=== PATIENT | female | born 2000 | race Two or more races ===

== ENCOUNTER 2024-02-18 14:59 | Emergency (ER) | payer OTHER, SELFPAY ==
[2024-02-18 14:59] VITALS: BMI 21.9
[2024-02-18 15:09] VITALS: BP 106/78; PULSE 96; RESP 16; TEMP 37.1; O2SAT 97
--- NOTE | 2024-02-18 15:11 | XR_ITS ---
Examination: Foot, left, 3 views Technique: AP, oblique, lateral views foot, 3 views Date and time of exam: February 18, 2024 1523 hours INDICATIONS: Foot today, foot pain fifth digit pain. FINDINGS: Adequate bone density Small old appearing bone density perhaps a sesamoid which is plantar to the distal aspect proximal phalanx fifth digit No opaque foreign body IMPRESSION: Recommend follow-up coned views fifth digit
--- NOTE | 2024-02-18 15:39 | XR_ITS ---
Examination: Left foot fifth digit 2 views TECHNIQUE: AP lateral left foot fifth digit 2 views Exam date and time: February 18, 2024 1551 hours INDICATIONS: Injury to the foot today with fifth digit pain. FINDINGS: Old appearing bone density, 3 mm projecting plantar to the interphalangeal joint fifth digit, but clinical correlation advised No dislocation IMPRESSION: Old appearing bone density projecting plantar to the interphalangeal joint fifth digit but clinical correlation advised
--- NOTE | 2024-02-18 16:04 | PD.EDLOWEX ---
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 Patient does not remember any direct trauma but reports pain to the area Limitations: no limitations Related Data Previous Rx's ?Medication ?Instructions ?Recorded ibuprofen 400 mg tablet (IBU) 400 mg PO BID PRN pain #30 tabs 05/08/18 diphenhydramine HCl 25 mg capsule 25 mg PO QID PRN allergic reaction 11/25/19 (Benadryl) #30 caps doxycycline hyclate 100 mg capsule 100 mg PO BID #14 caps 01/03/22 nitrofurantoin 100 mg PO BID #10 caps 01/03/22 monohydrate/macrocrystals 100 mg capsule (Macrobid) cetirizine 10 mg tablet (Zyrtec) 10 mg PO QDAY PRN allergy symptoms 05/16/22 #30 tabs sodium chloride 0.65 % nasal spray 2 spray intranasal QID #88 mL 05/16/22 aerosol (Saline Nasal) aluminum-mag hydroxide-simethicone 10 ml PO TID PRN indigestion #300 05/10/23 400 mg-400 mg-40 mg/5 mL oral susp mL (Maalox Maximum Strength) pantoprazole 40 mg tablet,delayed 40 mg PO QDAY #30 tabs 05/10/23 release (Protonix) ibuprofen 600 mg tablet 600 mg PO Q6H #30 tabs 02/18/24 Allergies Allergy/AdvReac Type Severity Reaction Status Date / Time No Known Allergies Allergy Verified 05/10/23 11:33 Review of Systems Review of Systems Systems Reviewed: All systems reviewed, normal except as documented Constitutional Constitutional: Reports system reviewed and no additional complaints, except as documented, Denies fever(s) and Denies headache(s) Eyes Eyes: Reports system reviewed and no additional complaints, except as documented and Denies blurry vision ENT Ears, Nose, Mouth, and Throat: Reports system reviewed and no additional complaints, except as documented, Denies headache(s), Denies nasal congestion and Denies nasal discharge Cardiovascular Cardiovascular: Reports system reviewed and no additional complaints, except as documented, Denies chest pain and Denies dyspnea Respiratory Respiratory: Reports system reviewed and no additional complaints, except as documented, Denies chest congestion, Denies cough and Denies dyspnea Gastrointestinal Gastrointestinal: Reports system reviewed and no additional complaints, except as documented and Denies abdominal pain Musculoskeletal Musculoskeletal: Reports system reviewed and no additional complaints, except as documented, Reports abnormal gait, Reports arthralgias, Denies deformity, Denies numbness, Reports stiffness and Denies tingling Integumentary/Breasts Skin/Breast: Reports system reviewed and no additional complaints, except as documented and Denies rash Neurologic Neurologic: Reports system reviewed and no additional complaints, except as documented, Reports as per HPI, Reports abnormal gait, Denies headache(s), Denies numbness and Denies tingling Past Medical History Past Medical History CARDIAC: Negative Cardiac Disorders or Congestive Heart Failure RESPIRATORY: Negative Chronic Obstructive Pulmonary Disease (COPD) or Asthma GENITOURINARY: Negative Renal Disease ENDOCRINE: Negative Diabetes Mellitus Type 1 or Diabetes Mellitus Type 2 HEMATOLOGIC: Negative Sickle Cell Disease Social History SMOKING STATUS: Never smoker ED Exam General Limitations: Present no limitations General appearance: Present alert and in no apparent distress Head Head exam: Present atraumatic Eye Eye exam: Present normal appearance, PERRL and EOMI ENT ENT exam: Present normal exam, normal oropharynx and mucous membranes moist Neck Neck exam: Present normal inspection, full ROM and trachea midline Chest Chest inspection: Present normal inspection and symmetric chest wall rise Respiratory Respiratory exam: Present normal lung sounds bilaterally Cardiovascular Cardiovascular exam: Present regular rate, normal rhythm and normal heart sounds Abdominal Exam Abdominal exam: Present soft and normal bowel sounds Extremities Exam Extremities exam: Present tenderness, normal capillary refill and joint swelling (Left fifth digit pain and swelling); Absent pedal edema or calf tenderness Back Exam Back exam: Present normal inspection and full ROM Neurological Exam Neurological exam: Present alert, oriented X3 and CN II-XII intact Psychiatric Psychiatric exam: Present normal affect and normal mood Skin Skin exam: Present warm, dry, intact and normal color Course Quality Measures none Orders Category Date Time Status Crutches .NOW Care 02/18/24 16:11 Completed jensen wrap [Splint / Immobilizer] STAT Care 02/18/24 16:11 Completed XR foot comp LT min 3V Stat Exams 02/18/24 15:11 Completed XR toe LT min 2V Stat Exams 02/18/24 15:39 Completed Vital Signs Vital signs: Vital Signs Temperature 98.8 F 02/18/24 15:09 Pulse Rate 96 02/18/24 15:09 Respiratory Rate 16 02/18/24 15:09 Blood Pressure 106/78 02/18/24 15:09 Pulse Oximetry (%) 97 02/18/24 15:09 Oxygen Delivery Method Room Air 02/18/24 15:09 O2 saturation 97% room air within normal limits Extremity Injury, Lower MDM Narrative MDM Narrative:: 24-year-old female 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 Patient does not remember any direct trauma but reports pain to the area On exam patient is tenderness left foot fifth digit X-ray of left foot obtained no acute fracture dislocation noted per my interpretation Workmen's Compensation papers completed Patient placed in Jensen wrap given crutches patient instructed to remain nonweightbearing and follow-up with Workmen's Comp. For emergent concerns patient instructed to return immediately Patient data External records reviewed:: [facility] previous records Clinical information provided by:: patient Social determinants that could affect healthcare access:: none Patient has the following chronic illnesses:: None How is presenting disease/condition affected by chronic disease/condition?: no chronic disease Evaluation data The following diagnostics were reviewed and interpreted by me:: radiology exam(s) Lab and/or radiology exams considered but not ordered:: Radiology obtained Interpretation Summary: Reviewed by me Medications / Prescriptions Medications or Prescriptions considered but not ordered:: No meds Medication administrations:: No meds Consultations Consultation(s) initiated? (list below): No Diagnosis Extremity Injury, Lower Differential Diagnosis: other (Foot sprain, foot fracture) Most likely diagnosis given after review of the tests above:: Foot sprain Admission Indicated Admission indicated?: not indicated Admission Request Was there a request for admission?: No Disposition Plan Disposition Plan: Discharge Discharge Attestation Discharge Attestation: The patient and all family members were given an opportunity to ask questions and understood the discharge instructions. Discharge instructions specifically effects, indications for sooner follow up or return to the emergency department, and the expected course of current diagnosis. Patient condition: Stable Discharge Plan Plan Patient Disposition: HOME (Self Care) Disposition Comment: Stable Prescriptions/Referrals Prescriptions/Med Rec: New ibuprofen 600 mg tablet 600 mg PO Q6H Qty: 30 0RF No Action ibuprofen [IBU] 400 mg tablet 400 mg PO BID PRN (Reason: pain) Qty: 30 0RF diphenhydramine HCl [Benadryl] 25 mg capsule 25 mg PO QID PRN (Reason: allergic reaction) Qty: 30 0RF pantoprazole [Protonix] 40 mg tablet,delayed release (DR/EC) 40 mg PO QDAY Qty: 30 0RF alum-mag hydroxide-simeth [Maalox Maximum Strength] 400-400-40 mg/5 mL suspension 10 ml PO TID PRN (Reason: indigestion) Qty: 300 0RF nitrofurantoin monohyd/m-cryst [Macrobid] 100 mg capsule 100 mg PO BID Qty: 10 0RF Rx Instructions: must administer with a meal/food doxycycline hyclate 100 mg capsule 100 mg PO BID Qty: 14 0RF Saline Nasal 0.65 % aerosol,spray 2 spray intranasal QID Qty: 88 0RF cetirizine [Zyrtec] 10 mg tablet 10 mg PO QDAY PRN (Reason: allergy symptoms) Qty: 30 0RF Referrals: No Primary/Family,Physician [Primary Care Provider] - In 1 week Problem List Clinical Impression: Acute pain of left foot Patient/Caregiver Discharge Instructions Education Materials: RICE Additional Instructions: Please follow-up with Workmen's Compensation doctor as discussed for worsening symptoms return immediately I recommend you have a repeat x-ray 3 to 4 days for reevaluation Print Language: Croatian Stand Alone Forms: Tracy Award Info., Patient Portal Info Letter PA/CHIEF PAYROLL CLERK Supervising Physician PA/MARION Supervising Physician: Dr. ruiz
== END 2024-02-18 17:23 | disposition home or self-care (01) ==
PROVIDERS: Emergency Provider Emergency Medicine
DX: M79.672 Pain in left foot (principal)
CPT/HCPCS: 73630; 73660; 99283

== ENCOUNTER 2025-02-18 21:19 | Emergency (ER) | payer MEDICAID, SELFPAY ==
[2025-02-18 21:21] VITALS: BMI 21.9
[2025-02-18 21:51] VITALS: BP 138/94; PULSE 94; RESP 20; TEMP 36.7; O2SAT 98
--- NOTE | 2025-02-18 22:03 | PD.EDRME ---
Rapid Medical Screening Exam [facility] Arrival date/time: 02/18/25 21:19 25F with history of marijuana use presents to ED with 1 day of epigastric pain and N/V (not currently). Patient denies dysuria and diarrhea. Patient is on her cycle. Chief Complaint: Abdominal Pain Vital signs: Vital Signs Temperature 98.0 F 02/18/25 21:51 Pulse Rate 94 02/18/25 21:51 Respiratory Rate 20 02/18/25 21:51 Blood Pressure 138/94 H 02/18/25 21:51 Pulse Oximetry (%) 98 02/18/25 21:51 Oxygen Delivery Method Room Air 02/18/25 21:51 Exam: No gross ab tenderness. Clinical Impression: Hyperemesis vs gastritis vs pancreatitis vs period pain
[2025-02-18 22:45] LABS: Collection Type, Urine Clean Catch
[2025-02-18 23:02] LABS: Basophils # (Auto) 0.0 Thou/mm3 (0.0-0.2); Basophils % (Auto) 0 % (0-2.5); Eosinophils # (Auto) 0.1 Thou/mm3 (0.0-0.5); Eosinophils % (Auto) 1 % (0-10); Hematocrit 40.9 % (36.0-46.0); Hemoglobin 14.0 g/dL (12.0-16.0); Immature Granulocytes Auto 0.01 Thou/mm3 (0.00-0.00); Lymphocytes # (Auto) 2.6 Thou/mm3 (1.0-4.8); Lymphocytes % (Auto) 36 % (10-50); Mean Corpuscular HGB Conc 34.2 g/dl (31.0-37.0); Mean Corpuscular Hemoglobin 29.7 pg (25.0-35.0); Mean Corpuscular Volume 87 fL (80-100); Monocytes # (Auto) 0.6 Thou/mm3 (0.0-0.8); Monocytes % (Auto) 8 % (0-12); Neutrophils # (Auto) 4.0 Thou/mm3 (1.8-7.7); Neutrophils % (Auto) 55 % (37-80); Nucleated Red Blood Cell # 0.00 Thou/mm3 (0.00-0.00); Nucleated Red Blood Cell % 0 /100 WBC (0); Platelet Count 269 Thou/mm3 (140-440); RDW Standard Deviation 39.8 fL (36.4-46.3); Red Blood Count 4.71 Miln/mm3 (4.00-5.20); White Blood Count 7.4 Thou/mm3 (3.6-11.0)
[2025-02-18 23:03] LABS: Bacteria,Urine 4+; Squamous Epithelial Cell,Urine 31 /hpf (0-5)
[2025-02-18 23:04] LABS: Bilirubin,Urine Negative (Negative); Blood,Urine 3+ (Negative); Clarity,Urine Clear (Clear/Hazy); Color,Urine Yellow (Lt Yel-Yel); Glucose, Urine Negative (Negative); Ketones,Urine 1+ (Negative); Leukocyte Esterase,Urine Trace (Negative); Nitrite,Urine Positive (Negative); PH,Urine 6.0 (5.0-7.0); Protein,Urine 2+ (Neg - Trace); Specific Gravity,Urine >= 1.030 (1.001-1.035); Urobilinogen,Urine 0.2 mg/dL (0.0-1.0)
[2025-02-18 23:06] LABS: Amphetamine/Methamp Scrn,U Negative (Negative); Barbiturate Screen,Urine Negative (Negative); Benzodiazepines Screen,Urine Negative (Negative); Benzoylecgonine Screen, Ur Positive (Negative); Fentanyl Screen,Urine Negative (Negative); HCG Qualitative,Urine Negative; Opiate Screen,Urine Negative (Negative); THC Screen,Urine Positive (Negative)
[2025-02-18 23:10] LABS: Culture Indicated,Urine Contaminated; RBC,Urine 25 /hpf (0-3); WBC,Urine 15 /hpf (0-5)
[2025-02-18 23:27] LABS: Alanine Aminotransferase 11 U/L (10-49); Albumin, Serum 5.1 gm/dL (3.5-5.0); Albumin/Globulin Ratio 1.8 (1.2-2.2); Alkaline Phosphatase 130 U/L (46-116); Anion Gap 9 (7-16); Aspartate Amino Transferase 17 U/L (0-34); BUN/Creatinine Ratio 16 Ratio (12-20); Bilirubin,Total 0.5 mg/dL (0.3-1.2); Blood Urea Nitrogen 13 mg/dL (9-23); Calcium 9.5 mg/dL (8.3-10.6); Calcium (Corrected) 9.5 mg/dL (8.5-10.1); Carbon Dioxide 26.8 mMol/L (20.0-31.0); Chloride 105 mMol/L (98-107); Creatinine (Component) 0.8 mg/dL (0.6-1.3); Estimated Creatinine Clearance 85.8 mL/min (>60); Globulin 2.8 gm/dL (2.3-3.5); Glucose 94 mg/dL (74-106); Lipase 34 U/L (12-53); Osmolality,Calculated 281 (275-295); Potassium 3.8 mMol/L (3.4-5.1); Sodium 141 mMol/L (136-145); Total Protein 7.9 gm/dL (5.7-8.2); eGFR > 60 See Note
[2025-02-19] MEDS: FAMOTIDINE 20 MG TABLET 40 MG PO (00:07)
[2025-02-19] MEDS: MG HYD/AL HYD/SIME (Maalox Reg) SUSP 30 ML UDC PO (00:07)
[2025-02-19 01:03] LABS: Collection Type, Urine Clean Catch
[2025-02-19 01:27] LABS: Bacteria,Urine 4+; Bilirubin,Urine Negative (Negative); Blood,Urine 3+ (Negative); Color,Urine Dark-Brown (Lt Yel-Yel); Culture Indicated,Urine Contaminated; Glucose, Urine Negative (Negative); Ketones,Urine Trace (Negative); Leukocyte Esterase,Urine Positive (Negative); Nitrite,Urine Negative (Negative); PH,Urine 6.0 (5.0-7.0); Protein,Urine 2+ (Neg - Trace); RBC,Urine 2846 /hpf (0-3); Specific Gravity,Urine 1.037 (1.001-1.035); Squamous Epithelial Cell,Urine 66 /hpf (0-5); Urobilinogen,Urine Negative mg/dL (0.0-1.0); WBC,Urine 54 /hpf (0-5)
[2025-02-19 01:44] LABS: Clarity,Urine Turbid (Clear/Hazy)
--- NOTE | 2025-02-19 02:21 | PC.NURSE ---
CALLED PATIENT IN THE LOBBY AND OUTSIDE, NO ANSWER RECIEVED.
--- NOTE | 2025-02-19 02:29 | PC.NURSE ---
CALLED PATIENT IN THE LOBBY NO ANSWER RECIEVED.
--- NOTE | 2025-02-19 02:38 | PC.NURSE ---
STAFF CALLED PATIENT IN THE LOBBY AND OUTSIDE, NO ANSWER RECIEVED.
== END 2025-02-19 02:39 | disposition left against medical advice (07) ==
PROVIDERS: Physician Assistant; Emergency Provider Emergency Medicine; PCP Registered Nurse
DX: R10.13 Epigastric pain (principal); Z53.29 Procedure and treatment not carried out because of patient's decision for other reasons
CPT/HCPCS: 36415; 80053; 80307; 81001; 81025; 83690; 85025; 99282; A9270